=== PATIENT | male | born 1965 | race Two or more races ===

== ENCOUNTER → 2023-09-09 07:17 | Outpatient (REF) | payer BC, SELFPAY ==
[2023-09-09 08:20] LABS: % Basophils 0.5 % (0-2); % Eosinophils 5.9 % (0-6); % Immature Granulocytes 0.2 % (0-0.5); % Lymphocytes 36.9 % (20.5-51.1); % Monocytes 10.3 % (1.7-9.3); % Neutrophils 46.2 % (42.2-75.2); Absolute Eosinophils 0.2 10^3/uL (0-0.7); Absolute Lymphocytes 1.5 10^3/uL (1.2-3.4); Absolute Monocytes 0.4 10^3/uL (0.1-0.6); Absolute Neutrophils 1.9 10^3/uL (1.4-6.5); Hematocrit 41.5 % (39.0-52.0); Hemoglobin 14.2 g/dL (13.0-18.0); Mean Corp Hgb Conc. 34.2 g/dL (33.0-37.0); Mean Corpuscular Hgb 28.6 pg (27.0-31.0); Mean Corpuscular Volume 83.5 fL (80.0-94.0); Mean Platelet Volume 10.5 fL (7.4-10.4); Nucleated Red Blood Cells % 0 % (-); Platelet Count 177 10^3/uL (130-400); Red Blood Cell Count 4.97 10^6/uL (4.70-6.10); Red Cell Dist. Width 12.4 % (11.5-14.5); White Blood Cell Count 4.1 10^3/uL (4.8-10.8)
[2023-09-09 08:53] LABS: Glycohemoglobin (HgbA1c) 5.9 % (4.0-5.6)
[2023-09-09 10:10] LABS: ALT (SGPT) 16 U/L (0-50); AST (SGOT) 22 U/L (17-59); Albumin 4.5 g/dl (3.5-5.0); Alkaline Phosphatase 69 U/L (38-126); Blood Urea Nitrogen 10 mg/dl (9-20); Calcium 9.3 mg/dl (8.4-10.2); Carbon Dioxide 25 mmol/L (22-30); Chloride 106 mmol/L (98-107); Glucose 106 mg/dl (70-99); HDL Cholesterol 55 mg/dl; Potassium 4.5 mmol/L (3.5-5.1); Sodium 140 mmol/L (135-145); Total Bilirubin 0.6 mg/dl (0.2-1.3); Total Cholesterol 158 mg/dl (50-199); Total Protein 7.3 g/dl (6.3-8.2); eGFR > 60.00
[2023-09-09 10:25] LABS: LDL Cholesterol, Calculated 94 mg/dl; Triglyceride 46 mg/dl (10-149); Very Low Density Lipoprotein 9 mg/dl (0-30)
[2023-09-09 10:33] LABS: PSA, Total - Screen 0.49 ng/ml (0.0-4.0); TSH Reflex To Free T4 1.08 uIU/ml (0.47-4.68)
[2023-09-09 10:52] LABS: Vitamin B12 367 pg/ml (239-931)
== END ==
LOC: REG 07:17
PROVIDERS: ATTENDING PHYSICIAN Nurse Practitioner Family
DX: R20.2 Paresthesia of skin (principal); E20.0 Idiopathic hypoparathyroidism; R73.01 Impaired fasting glucose; R53.81 Other malaise
CPT/HCPCS: 36415; 80053; 80061; 82607; 83036; 84443; 85025; G0103

== ENCOUNTER → 2024-06-07 14:06 | Outpatient (REF) | payer BC, SELFPAY ==
[2024-06-07 14:45] LABS: HDL Cholesterol 60 mg/dl; LDL Cholesterol, Calculated 111 mg/dl; Total Cholesterol 180 mg/dl (50-199); Triglyceride 48 mg/dl (10-149); Very Low Density Lipoprotein 9 mg/dl (0-30)
== END ==
LOC: REG 14:06
PROVIDERS: ATTENDING PHYSICIAN Nurse Practitioner Family
DX: I25.10 Atherosclerotic heart disease of native coronary artery without angina pectoris (principal); E78.5 Hyperlipidemia, unspecified
CPT/HCPCS: 36415; 80061

== ENCOUNTER → 2024-09-19 16:35 | Outpatient (REF) | payer BC, SELFPAY | LOC: HWRAD 16:35 | PROVIDERS: ATTENDING PHYSICIAN Nurse Practitioner Family | DX: R42 Dizziness and giddiness (principal); R53.83 Other fatigue; R61 Generalized hyperhidrosis | CPT/HCPCS: 71046 ==

== ENCOUNTER → 2024-09-20 06:39 | Outpatient (REF) | payer BC, SELFPAY ==
[2024-09-20 07:20] LABS: % Basophils 0.2 % (0-2); % Eosinophils 5.8 % (0-6); % Immature Granulocytes 0.2 % (0-0.5); % Lymphocytes 33.4 % (20.5-51.1); % Monocytes 8.6 % (1.7-9.3); % Neutrophils 51.8 % (42.2-75.2); Absolute Eosinophils 0.3 10^3/uL (0-0.7); Absolute Lymphocytes 1.4 10^3/uL (1.2-3.4); Absolute Monocytes 0.4 10^3/uL (0.1-0.6); Absolute Neutrophils 2.2 10^3/uL (1.4-6.5); Hematocrit 42.8 % (39.0-52.0); Hemoglobin 14.4 g/dL (13.0-18.0); Mean Corp Hgb Conc. 33.6 g/dL (33.0-37.0); Mean Corpuscular Hgb 28.7 pg (27.0-31.0); Mean Corpuscular Volume 85.3 fL (80.0-94.0); Mean Platelet Volume 10.3 fL (7.4-10.4); Nucleated Red Blood Cells % 0 % (-); Platelet Count 171 10^3/uL (130-400); Red Blood Cell Count 5.02 10^6/uL (4.70-6.10); Red Cell Dist. Width 12.4 % (11.5-14.5); White Blood Cell Count 4.3 10^3/uL (4.8-10.8)
[2024-09-20 07:52] LABS: ALT (SGPT) 27 U/L (0-50); AST (SGOT) 22 U/L (17-59); Albumin 4.6 g/dl (3.5-5.0); Alkaline Phosphatase 55 U/L (38-126); Blood Urea Nitrogen 12 mg/dl (9-20); Calcium 9.5 mg/dl (8.4-10.2); Carbon Dioxide 23 mmol/L (22-30); Chloride 109 mmol/L (98-107); Glucose 114 mg/dl (70-99); Iron 117 ug/dl (49-181); Potassium 4.6 mmol/L (3.5-5.1); Sodium 139 mmol/L (135-145); Total Bilirubin 0.7 mg/dl (0.2-1.3); Total Protein 7.3 g/dl (6.3-8.2); eGFR > 60.00
[2024-09-20 08:01] LABS: Percent Saturation 37 % (20-50); Total Iron Binding Capacity 308 ug/dl (261-462)
[2024-09-20 08:22] LABS: TSH Reflex To Free T4 1.49 uIU/ml (0.47-4.68)
[2024-09-20 08:41] LABS: Vitamin B12 354 pg/ml (239-931)
[2024-09-20 08:45] LABS: Monotest Positive (Negative)
[2024-09-22 02:51] LABS: EBV-EA (D) Ab IgG 70.2 U/mL (0.0-10.9); EBV-NA IgG 7.8 U/mL (0.0-21.9); EBV-VCA IgG Antibodies >750.0 U/mL (0.0-21.9); EBV-VCA IgM Antibodies <10.0 U/mL (0.0-43.9)
[2024-09-22 04:05] LABS: CMV IgM Antibody <8.0 AU/mL (<=29.9)
[2024-09-22 13:28] LABS: Lyme Antibody Screen, EIA Negative (Negative)
[2024-09-22 15:55] LABS: HDL Cholesterol 54 mg/dl; LDL Cholesterol, Calculated 116 mg/dl; Total Cholesterol 182 mg/dl (50-199); Triglyceride 63 mg/dl (10-149); Very Low Density Lipoprotein 12 mg/dl (0-30)
== END ==
LOC: REG 06:39
PROVIDERS: ATTENDING PHYSICIAN Nurse Practitioner Family
DX: I25.10 Atherosclerotic heart disease of native coronary artery without angina pectoris (principal); R42 Dizziness and giddiness; R53.83 Other fatigue; R61 Generalized hyperhidrosis
CPT/HCPCS: 36415; 80053; 80061; 82607; 82728; 83540; 83550; 84443; 85025; 86308; 86618; 86645; 86663; 86664; 86665